=== PATIENT | female | born 1985 | race Caucasian/White ===

== ENCOUNTER → 2016-10-16 | Outpatient (CLI) | payer OTHER ==
[~2016-10-16] MED LIST: ETON1IMP2 SC
--- NOTE | 2016-10-16 16:25 | MAMMOGRAPHY REPORT ---
BILATERAL DIGITAL DIAGNOSTIC MAMMOGRAM TOMOSYNTHESIS WITH CAD AND TARGETED BILATERAL ULTRASOUND: 10/07 CLINICAL HISTORY: 31-year-old woman presents with a reported two-year history of an abnormality in t he left breast. It initially began as focal pain but for the past 6 months she has felt a lump in t hat location. No skin erythema or nipple discharge. Family history of breast cancer = sister diagn osed at age 32. TECHNIQUE: Bilateral CC and MLO 2-D digital and tomosynthesis images were obtained. Current study w as also evaluated with a Computer Aided Detection (CAD) system. COMPARISON: No prior exams were available for comparison. BREAST COMPOSITION: The tissue of both breasts is extremely dense, which lowers the sensitivity of mammography. FINDINGS: Bilateral mammography was performed given a first degree relative who developed breast can cer at age 32. A triangle skin palpable marker overlies the upper outer middle one third of the lef t breast, denoting the lump pointed out by the patient. No suspicious mass, architectural distortio n or suspicious microcalcifications are identified within the left breast, with particular attention to the area of palpable concern in the upper outer quadrant. There is a 12 mm nodular asymmetry in the medial, middle one third of the right breast on the CC view that effaces on the corresponding t omosynthesis images and most likely represents normal glandular tissue. However, further evaluation with ultrasound was performed in the medial right breast. No other suspicious mass, focal area of architectural distortion or suspicious microcalcifications are identified in the right breast. Real-time high-resolution ultrasound was performed in the area of palpable lump pointed out by the p atient (1:00 left breast, 8 cm from the nipple), and throughout the medial right breast. In the are a of palpable concern in the left 1:00 breast, there is heterogeneous background echotexture, with a mixture of fat lobules and dense glandular tissue. No suspicious solid or cystic mass is seen. Th roughout the right medial breast, normal fibroglandular tissue is seen without a suspicious solid or cystic mass. IMPRESSION: ACR BI-RADS CATEGORY 2: BENIGN, TARGETED ULTRASOUND ACR BI-RADS CATEGORY 2: BENIGN 1. There is no mammographic or targeted sonographic evidence of malignancy bilaterally. There is no suspicious mammographic or sonographic abnormality to correlate with the palpable lump in the left upper outer quadrant. Therefore, clinical follow-up is recommended, as biopsy of a clinically suspi cious mass should not be precluded by negative imaging. 2. Given the strong family history of premenopausal breast cancer (patient's sister at age 32), tone eagle recommend annual screening mammography from here forward, as well as additional screening with br east MRI. These results and recommendations were discussed with the patient at the time of the exam. Approximately 10% of breast cancers are not detected with mammography. A negative mammographic repor t should not delay biopsy if a clinically suggestive mass is present. Chata Lizama M.D. ay/:10/16/2016 13:19:01 Medical Videographer: Cynthia KATE(R)(Aimee), [facility] [address] letter sent: Normal 1/2 BI-RADS Code: ACR BI-RADS Category 2: Benign Ultrasound BI-RADS: ACR BI-RADS Category 2: Benign
== END | disposition home or self-care (01) ==
LOC: C.MAMM 10:06
PROVIDERS: ATTEND Obstetrics & Gynecology
DX: N63 Unspecified lump in breast (principal); Z80.3 Family history of malignant neoplasm of breast

== ENCOUNTER 2017-01-08 17:11 | Emergency (ER) | payer OTHER ==
[~2017-01-08] VITALS: Ht 170.2 cm; Wt 66.8 kg
[2017-01-08 17:14] VITALS: TEMP 36.4; Ht 170.2 cm; Wt 66.8 kg
[2017-01-08] MEDS ORDERED: ETON1IMP2 SC (17:49)
[2017-01-08 18:29] LABS: BASO % 0.1 %; BASO ABS # 0.01 K/uL (0-0.2); COMPLETE YES; EOS % 0.5 %; HEMATOCRIT 39.6 % (37-47); IG% 0.1 %; LYMPH % 37.8 %; LYMPH ABS # 2.83 K/uL (1.2-3.4); MEAN CELL VOLUME 90.8 fL (80-100); MEAN CORPUSCULAR HEMOGLOBIN 31.2 pg (25-34); MEAN CORPUSCULAR HGB CONC 34.3 g/dl (32-36); MEAN PLATELET VOLUME 9.9 fL (7.4-10.4); MONO % 4.5 %; PLATELET COUNT 337 K/uL (130-400); RED BLOOD COUNT 4.36 M/uL (4.2-5.4); WHITE BLOOD COUNT 7.48 K/uL (4.8-10.8)
[2017-01-08] MEDS ORDERED: ONDANSETRON 8 MG/54 ML D5W IV STA (18:31)
[2017-01-08] MEDS ORDERED: KETOROLAC TROMETHAMINE 30 MG/ML VIAL IV STA (18:31)
[2017-01-08] MEDS ORDERED: SODIUM CHLORIDE 0.9% 1000ML 1,000 ML IV STA (18:31)
[2017-01-08 18:34] LABS: URINE APPEARANCE CLEAR (CLEAR); URINE BILIRUBIN NEG (NEG); URINE COLOR YELLOW; URINE EPITHELIAL CELL AUTO >30 /lpf (0-5); URINE NITRITE NEG (NEG); URINE PH 6.5 (4.5-7.5); URINE SPECIFIC GRAVITY 1.024 (1.000-1.030); UROBILINOGEN NEG (NEG); ZZUR CULT IF INDIC CLEAN CATCH YES
[2017-01-08 18:35] LABS: MANUAL MICROSCOPIC REQUIRED? NO; REVIEW REQ? NO
[2017-01-08 18:50] LABS: BUN/CREATININE RATIO 15.2 (10-20); CALCIUM 9.5 mg/dl (8.5-10.1); CREATININE 0.89 mg/dl (0.60-1.20); POTASSIUM 4.2 mmol/L (3.5-5.1)
--- NOTE | 2017-01-08 19:41 | DIAGNOSTIC IMAGING REPORT ---
ABDOMINAL ULTRASOUND, RIGHT UPPER QUADRANT HISTORY: Right upper quadrant abdominal pain. COMPARISON: None. FINDINGS: The liver is sonographically normal. There is no biliary ductal dilatation. The common bile duct measures 5 mm in caliber. Gallbladder is normal. There are no gallstones. The pancreatic body is normal. The head and tail are slightly obscured. There is no right hydronephrosis. IMPRESSION: No significant abnormality identified within the right upper quadrant. Electronically signed by: Karri Mejia M.D. 01/08/2017 7:40 PM Dictated Date/Time: 01/08/2017 7:39 PM
[2017-01-08 20:21] VITALS: BP 118/78; PULSE 60; O2SAT 96
--- NOTE | 2017-01-08 21:16 | EMERGENCY ROOM VISIT NOTE ---
History Report prepared by Karlosibe: Kimmy Blancas Under the Supervision of: Dr. Jonathan Sanchez M.D. First contact with patient: 18:06 Chief Complaint: ABDOMINAL PAIN Stated Complaint: STOMACH/SIDE/BACK PAIN, BLOATING, CONSTIPATION,CYNTHIA Nursing Triage Summary: having pain in stomach and right flank. flu like illness for the past 2 weeks. intermittent constipation and diarrhea History of Present Illness The patient is a 31 year old female who presents to the Emergency Room with complaints of persistent right sided abdominal pain for the past 1 week. She is accompanied by her . She rates her pain as a 6/10 in severity and notes she has tried taking Ibuprofen with no relief. The pain started radiating around to her right sided flank today, so she came to the ED. Eating and drinking worsen her discomfort. She reports she has experienced intermittent constipation and diarrhea for the past 1 week. She has also been nauseous for the past several days but has not vomited. The patient notes she fractured her T9-T11 in July 2016, but states her current pain feels different from the pain she experienced with the fracture. She has also been sick with flu like symptoms for the past 2 weeks. Pt denies LOC, headache, fevers, chills, diaphoresis, visual changes, neck pain, chest pain, breathing difficulties, abdominal pain, melena, hematochezia, urinary symptoms, numbness, weakness, lymphadenopathy, rash, or other complaints. 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 A total of ten systems were reviewed and were otherwise negative. Past Medical & Surgical Medical Problems: (1) UTI (urinary tract infection) Surgical Problems: (1) History of tonsillectomy Family History Cancer Heart disease Hypertension Stroke Social History Smoking Status: Never Smoker Alcohol Use: occasionally Drug Use: none Marital Status: Housing Status: lives with family Occupation Status: employed Current/Historical Medications Scheduled Etonogestrel (Nexplanon), 1 IMP SC UD Allergies Coded Allergies: No Known Allergies (Unverified , 07/02/15) Physical Exam Vital Signs Date Time Temp Pulse Resp B/P (MAP) Pulse Ox O2 Delivery O2 Flow Rate FiO2 7/3/17 20:21 60 18 118/78 96 01/08/17 18:51 54 01/08/17 18:44 52 12 110/73 97 Room Air 01/08/17 17:14 36.4 55 18 123/86 99 Room Air Physical Exam GENERAL: Awake, alert, well-appearing, in no distress HENT: Normocephalic, atraumatic. Oropharynx unremarkable. EYES: Normal conjunctiva. Sclera non-icteric. NECK: Supple. No nuchal rigidity. FROM. No JVD. RESPIRATORY: Clear to auscultation. CARDIAC: Regular rate, normal rhythm. Extremities warm and well perfused. Pulses equal. ABDOMEN: Soft, non-distended. RUQ tenderness to palpation. No rebound or guarding. No masses. RECTAL: Deferred. MUSCULOSKELETAL: Chest examination reveals no tenderness. The back is symmetrical on inspection without obvious abnormality. There is no CVA tenderness to palpation. No joint edema. LOWER EXTREMITIES: Calves are equal size bilaterally and non-tender. No edema. No discoloration. NEURO: Normal sensorium. No sensory or motor deficits noted. SKIN: No rash or jaundice noted. Medical Decision & Procedures ER Provider Diagnostic Interpretation: Radiology results as stated below per my review and radiologist interpretation: ABDOMINAL ULTRASOUND, RIGHT UPPER QUADRANT HISTORY: Right upper quadrant abdominal pain. COMPARISON: None. FINDINGS: The liver is sonographically normal. There is no biliary ductal dilatation. The common bile duct measures 5 mm in caliber. Gallbladder is normal. There are no gallstones. The pancreatic body is normal. The head and tail are slightly obscured. There is no right hydronephrosis. IMPRESSION: No significant abnormality identified within the right upper quadrant. Electronically signed by: Karri Mejia M.D. 01/08/2017 7:40 PM Laboratory Results 01/08/17 18:15 Red Blood Count 4.36, Mean Corpuscular Volume 90.8, Mean Corpuscular Hemoglobin 31.2, Mean Corpuscular Hemoglobin Concent 34.3, Mean Platelet Volume 9.9, Neutrophils (%) (Auto) 57.0, Lymphocytes (%) (Auto) 37.8, Monocytes (%) (Auto) 4.5, Eosinophils (%) (Auto) 0.5, Basophils (%) (Auto) 0.1, Neutrophils # (Auto) 4.25, Lymphocytes # (Auto) 2.83, Monocytes # (Auto) 0.34, Eosinophils # (Auto) 0.04, Basophils # (Auto) 0.01 01/08/17 18:15 Test 01/08/17 18:15 White Blood Count 7.48 K/uL (4.8-10.8) Red Blood Count 4.36 M/uL (4.2-5.4) Hemoglobin 13.6 g/dL (12.0-16.0) Hematocrit 39.6 % (37-47) Mean Corpuscular Volume 90.8 fL (80-100) Mean Corpuscular Hemoglobin 31.2 pg (25-34) Mean Corpuscular Hemoglobin Concent 34.3 g/dl (32-36) Platelet Count 337 K/uL (130-400) Mean Platelet Volume 9.9 fL (7.4-10.4) Neutrophils (%) (Auto) 57.0 % Lymphocytes (%) (Auto) 37.8 % Monocytes (%) (Auto) 4.5 % Eosinophils (%) (Auto) 0.5 % Basophils (%) (Auto) 0.1 % Neutrophils # (Auto) 4.25 K/uL (1.4-6.5) Lymphocytes # (Auto) 2.83 K/uL (1.2-3.4) Monocytes # (Auto) 0.34 K/uL (0.11-0.59) Eosinophils # (Auto) 0.04 K/uL (0-0.5) Basophils # (Auto) 0.01 K/uL (0-0.2) RDW Standard Deviation 40.1 fL (36.4-46.3) RDW Coefficient of Variation 12.0 % (11.5-14.5) Immature Granulocyte % (Auto) 0.1 % Immature Granulocyte # (Auto) 0.01 K/uL (0.00-0.02) Urine Color YELLOW Urine Appearance CLEAR (CLEAR) Urine pH 6.5 (4.5-7.5) Urine Specific [place] 1.024 (1.000-1.030) Urine Protein NEG (NEG) Urine Glucose (UA) NEG (NEG) Urine Ketones NEG (NEG) Urine Occult Blood TRACE (NEG) Urine Nitrite NEG (NEG) Urine Bilirubin NEG (NEG) Urine Urobilinogen NEG (NEG) Urine Leukocyte Esterase NEG (NEG) Urine WBC (Auto) 1-5 /hpf (0-5) Urine RBC (Auto) 0-4 /hpf (0-4) Urine Hyaline Casts (Auto) 1-5 /lpf (0-5) Urine Epithelial Cells (Auto) >30 /lpf (0-5) Urine Bacteria (Auto) 1+ (NEG) Urine Test NEG (NEG) Anion Gap 8.0 mmol/L (3-11) Est Creatinine Clear Calc Drug Dose 89.9 ml/min Estimated GFR () 100.8 Estimated GFR (Non- 87.0 BUN/Creatinine Ratio 15.2 (10-20) Calcium Level 9.5 mg/dl (8.5-10.1) Total Bilirubin 0.7 mg/dl (0.2-1) Direct Bilirubin 0.2 mg/dl (0-0.2) Aspartate Amino Transf (AST/SGOT) 13 U/L (15-37) Alanine Aminotransferase (ALT/SGPT) 21 U/L (12-78) Alkaline Phosphatase 43 U/L (45-117) Total Protein 7.4 gm/dl (6.4-8.2) Albumin 4.1 gm/dl (3.4-5.0) Lipase 258 U/L (73-393) Laboratory results reviewed by me Medications Administered Medications (Trade) Dose Ordered Sig/Presley Route Start Time Stop Time Status Last Admin Dose Admin Sodium Chloride 1,000 ml @ 999 mls/hr Q1H1M STAT IV 01/08/17 18:31 01/08/17 19:31 DC 01/08/17 18:44 999 MLS/HR Ketorolac Tromethamine (Toradol Inj) 10 mg NOW STAT IV 01/08/17 18:31 01/08/17 18:33 DC 01/08/17 18:43 10 MG Ondansetron HCl (Zofran 8mg Iv) 8 mg NOW STAT IV 01/08/17 18:31 01/08/17 18:33 DC 01/08/17 18:44 8 MG ED Course 1828: The patient was evaluated in room C7. A complete history and physical exam was performed. 1830: Zofran 8 mg IV, Toradol 10 mg IV, NSS 1000 ml @ 999 mls/hr IV. 2004: I reevaluated the patient. She is feeling much better. I did offer to do more imaging, but she declined. The patient notes she has been eating a low carbohydrate, high fat diet for the past few months and I discussed switching to a more balanced diet. She agrees. I discussed her results and discharge instructions and she verbalized complete understanding and agreement. Medical Decision Medication Reconciliation: I attest that I have personally reviewed the patient' s current medication list Blood pressure screening: Patient was found to have normal blood pressure on screening and does not require follow-up. Triage Nursing notes reviewed. The patient's presentation and history were concerning for right upper quadrant abdominal pain Etiologies such as biliary pathology, pancreatitis, appendicitis, diverticulitis, obstruction, inflammatory bowel disease, renal colic, PUD, mesenteric ischemia, aortic pathology, infections, genitourinary, UTI, perforated viscus, , As well as others were entertained. the patient was evaluated. She had tenderness in the right upper quadrant without peritoneal findings. Clinically she looked well. She was given Toradol , Zofran, and normal saline. On reassessment she felt much better. Her CBC, chemistry panel, LFTs, lipase, urinalysis and test were all normal. The patient underwent ultrasound imaging which did not reveal any acute findings. Patient does note recently that she has been eating a very high fat diet. I advised her to change this. This could be biliary dysfunction although there are no abnormalities on diagnostic testing. I did offer to do additional testing and imaging and the patient declined. She felt well. She feels comfortable with modifying her diet and following up this week in the office. If she worsens in any way she will come back to the emergency department for reevaluation. The exact etiology of her symptoms is not known at this time. I gave my usual and customary discussion regarding this issue. By the evaluation outlined above other emergent etiologies such as those listed in the differential, as well as others, were deemed relatively unlikely. The patient was educated about the findings as listed above. All questions were answered and the patient was pleased with the treatment. Return instructions were outlined and the patient was discharged in stable condition. The patient was referred to her PCP for follow-up for a recheck of the current condition. Impression Primary Impression: Right upper quadrant abdominal pain Scribe Attestation The scribe's documentation has been prepared under my direction and personally reviewed by me in its entirety. I confirm that the note above accurately reflects all work, treatment, procedures, and medical decision making performed by me. Departure Information Dispostion Home / Self-Care Referrals No Doctor, Assigned (PCP) Patient Instructions [facility] Additional Instructions ABDOMINAL PAIN INSTRUCTIONS: Ibuprofen(Motrin, Advil) may be used for fever or pain. Use 600mg every six hours as needed. Take with food. Avoid using more than 2400mg in a 24 hour period. Do not use 2400mg per day for more than three consecutive days without physician direction. Prolonged inappropriate use can lead to stomach upset or ulcers. (AND/OR) Acetaminophen(Tylenol) may be used for fever or pain. Use 1000mg every six hours as needed. Avoid using more than 4000mg in a 24 hour period. Rest and drink plenty of fluids as tolerated. Slow sips of water or sports drinks are recommended instead of large amounts all at once. Continue current medications. Avoid fatty foods. Return to the ER immediately for worsening or persistent abdominal pain, vomiting, fevers, chest pains, difficulty breathing, black or bloody stools, worsening of your condition, or as needed. Follow up with your primary physician in 2-3 days for a recheck of your current condition.
== END 2017-01-08 20:22 | disposition home or self-care (01) ==
LOC: C.EDB 17:12 → C.EDC 20:22
DX: R10.11 Right upper quadrant pain (principal); Z87.440 Personal history of urinary (tract) infections; Z90.89 Acquired absence of other organs; Z82.49 Family history of ischemic heart disease and other diseases of the circulatory system; Z82.3 Family history of stroke

== ENCOUNTER → 2017-01-23 | Outpatient (CLI) | payer OTHER ==
[~2017-01-23] MED LIST changes: +SINCALIDE INJ 1.3 MCG in SODIUM CHLORIDE 0.9% 100ML 100 ML IV ONE
--- NOTE | 2017-01-23 13:09 | DIAGNOSTIC IMAGING REPORT ---
HEPATOBILIARY EF IMAGING HISTORY: Pain RUQ PAIN, PAIN AFTER EATING COMPARISON: None. TECHNIQUE: Immediately following the intravenous administration of 5.5 mCi Tc-99m Choletec, dynamic anterior abdominal imaging pre/post 1.3 mcg of Kinevac was performed. FINDINGS: Uniform hepatic tracer accumulation is shown. Prompt intrahepatic biliary excretion is seen. The gallbladder, common bile duct, and small bowel are all visualized by 30 minutes. This appearance represents the normal sequence of biliary excretion. The gallbladder ejection fraction following administration of Kinevac was 48 % (normal >35%). IMPRESSION: 1. No evidence for cystic duct obstruction. 2. Gallbladder ejection fraction calculated to be 48 %. The above report was generated using voice recognition software. It may contain grammatical, syntax or spelling errors. Electronically signed by: Chan Laughlin M.D. 01/23/2017 1:08 PM Dictated Date/Time: 01/23/2017 1:07 PM
== END | disposition home or self-care (01) ==
LOC: C.NUCL 10:28
PROVIDERS: ATTEND Nurse Practitioner
DX: R10.11 Right upper quadrant pain (principal)

== ENCOUNTER → 2017-01-29 | Outpatient (CLI) | payer OTHER ==
[~2017-01-29] MED LIST changes: -SINCALIDE INJ 1.3 MCG in SODIUM CHLORIDE 0.9% 100ML 100 ML IV ONE
== END | disposition home or self-care (01) ==
LOC: C.PAPS 09:55
PROVIDERS: ATTEND Obstetrics & Gynecology
DX: Z01.419 Encounter for gynecological examination (general) (routine) without abnormal findings (principal)

== ENCOUNTER → 2017-06-28 | Outpatient (CLI) | payer OTHER | END | disposition home or self-care (01) | LOC: C.LAB1850 15:04 | PROVIDERS: ATTEND Obstetrics & Gynecology | DX: Z31.69 Encounter for other general counseling and advice on procreation (principal) ==

== ENCOUNTER → 2017-10-09 | Outpatient (CLI) | payer OTHER | END | disposition home or self-care (01) | LOC: C.LABSPEC 16:05 | PROVIDERS: ATTEND Obstetrics & Gynecology | DX: O09.291 Supervision of pregnancy with other poor reproductive or obstetric history, first trimester (principal) ==

== ENCOUNTER → 2017-10-15 | Outpatient (CLI) | payer OTHER ==
[2017-10-15 14:44] LABS: BASO % 0.1 %; BASO ABS # 0.01 K/uL (0-0.2); EOS % 0.1 %; EOS ABS # 0.01 K/uL (0-0.5); HEMATOCRIT 36.3 % (37-47); HEMOGLOBIN 13.1 g/dL (12.0-16.0); IG# 0.03 K/uL (0.00-0.02); LYMPH % 27.9 %; LYMPH ABS # 2.89 K/uL (1.2-3.4); MEAN CELL VOLUME 87.5 fL (80-100); MEAN CORPUSCULAR HEMOGLOBIN 31.6 pg (25-34); MEAN CORPUSCULAR HGB CONC 36.1 g/dl (32-36); MEAN PLATELET VOLUME 9.8 fL (7.4-10.4); MONO % 5.5 %; MONO ABS # 0.57 K/uL (0.11-0.59); NEUT % 66.1 %; NEUT ABS # 6.84 K/uL (1.4-6.5); PLATELET COUNT 347 K/uL (130-400); RED CELL DISTRIBUTION WIDTH CV 12.4 % (11.5-14.5); RED CELL DISTRIBUTION WIDTH SD 39.7 fL (36.4-46.3); WHITE BLOOD COUNT 10.35 K/uL (4.8-10.8)
== END | disposition home or self-care (01) ==
LOC: C.LAB1850 12:54
PROVIDERS: ATTEND Obstetrics & Gynecology
DX: O09.291 Supervision of pregnancy with other poor reproductive or obstetric history, first trimester (principal)

== ENCOUNTER 2019-03-04 11:57 | Inpatient (IN) ==
[2019-03-04 12:36] LABS: Appearance Urine Clear (Clear); Bacteria Urine Automated Negative (Negative); Bilirubin Urine Negative (Negative); Blood Urine Negative (Negative); Cast Urine Automated 0 /lpf (0-5); Color Urine Yellow; Epithelial Cell Urine Auto >30 /lpf (0-5); Glucose Urine UA Negative (Negative); Ketones Urine Negative (Negative); Leukocyte Esterase Urine Trace (Negative); Nitrite Urine Negative (Negative); Protein Urine Negative (Negative); RBC Urine Automated 0-4 /hpf (0-4); Specific Gravity Urine 1.009 (1.000-1.030); Urobilinogen Urine Negative (Negative)
[2019-03-04 12:39] LABS: Basophils # (auto) 0.01 K/uL (0-0.2); Basophils % (auto) 0.2 %; Eosinophils # (auto) 0.04 K/uL (0-0.5); Eosinophils % (auto) 0.7 %; Immature Granulocytes # (auto) 0.01 K/uL (0.00-0.02); Immature Granulocytes % (auto) 0.2 %; Lymphocytes # (auto) 2.72 K/uL (1.2-3.4); Lymphocytes % (auto) 44.7 %; Mean Corpuscular Volume 88.5 fL (80-100); Monocytes # (auto) 0.32 K/uL (0.11-0.59); Monocytes % (auto) 5.3 %; Neutrophils # (auto) 2.98 K/uL (1.4-6.5); Neutrophils % (auto) 48.9 %; Platelet Count 309 K/uL (130-400); RDW Coefficient of Variation 12.1 % (11.5-14.5); RDW Standard Deviation 38.7 fL (36.4-46.3); Red Blood Count 4.52 M/uL (4.2-5.4); White Blood Count 6.08 K/uL (4.8-10.8)
[2019-03-04 13:01] LABS: Amphetamines+Metham, Urine Neg (Neg); Barbiturates, Urine Neg (Neg); Benzodiazepine, Urine Neg (Neg); Cocaine, Urine Neg (Neg); MDMA (Ecstacy), Urine Neg (Neg); Methadone, Urine Neg (Neg); Opiate, Urine Neg (Neg); Phencyclidine, Urine Neg (Neg)
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
[2019-03-04 13:04] LABS: Pregnancy Test, Serum Negative (Negative)
[2019-03-04 13:10] LABS: Acetaminophen < 2 ug/ml (10-30); Salicylate < 1.7 mg/dl (2.8-20)
[2019-03-04 13:15] LABS: Albumin Level 4.4 gm/dl (3.4-5.0); BUN Creatinine Ratio 11.5 (10-20); Calcium 9.1 mg/dl (8.5-10.1); Creatinine Clr Calc Pharmacy 102.2 ml/min; Est GFR (African American) 124.2; Est GFR (Non-African American) 107.2; Potassium 3.9 mmol/L (3.5-5.1)
[2019-03-04 13:25] LABS: Albumin Globulin Ratio 1.3 (0.9-2); Bilirubin,Total 1.7 mg/dl (0.2-1); Globulin 3.4 gm/dl (2.5-4.0); Thyroid Stimulating Hormone 1.84 uIu/ml (0.300-4.500); Total Protein 7.8 gm/dl (6.4-8.2)
[2019-03-04] MEDS ORDERED: ALUMINUM/MAGNESIUM SUSP 30 ML UDC PO PRN (14:24)
[2019-03-04] MEDS ORDERED: SODIUM CHLORIDE 0.65% NA SOLN 45 ML (OCEAN) PRN (14:24)
[2019-03-04] MEDS ORDERED: ACETAMINOPHEN 325 MG TAB PO PRN (14:24)
[2019-03-04] MEDS ORDERED: MAGNESIUM HYDROXIDE SUSP 30 ML UDC PO PRN (14:24)
[2019-03-04] MEDS ORDERED: BISMUTH SUBSALICYLATE PER ML OMNICELL CHARGE PO PRN (14:24)
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
[2019-03-05] MEDS: FLUOXETINE HCL 20 MG CAP PO SCH (08:32)
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
[2019-03-06] MEDS: FLUOXETINE HCL 20 MG CAP PO SCH (08:59)
--- NOTE | 2019-03-06 13:47 | Psychiatric Progress Note ---
Date of Service March 06, 2019 Impression / Recommendations Impression 33-year-old female admitted voluntarily for inpatient psychiatric treatment due to worsening depression, increased anxiety, and suicidal ideation with plan to overdose. Pt was agreeable to initiation of fluoxetine on admission, and with further collateral and evaluation - her symptoms reported suggest criteria for obsessive compulsive disorder, in combination with recurrent depression. Pt is tolerating fluoxetine, and is gaining insight through attendance of group and recreational therapies. After review of risks and benefits, the patient is agreeable to titration of fluoxetine to 40mg daily to further target her anxiety and depression symptoms. Pt feels communication with her is improving and she has been developing healthy coping strategies. Pt is accepting of referrals to [facility] for medication management and therapy. Pt denies ongoing SI at this time. Ongoing inpatient psychiatric treatment remains medically necessary to ensure consistency of improvements. Pt remains at high risk of harm to self, as decompensation is likely if she is discharged prematurely. (1) Suicidal ideation: 03/04 - Admitted to a locked inpatient behavioral health unit, on q15 minute safety checks - Encourage medication initiation/adjustments as indicated - Encourage participation in group and recreational therapies - Suggest family meeting to involve outpatient supports in safety planning - Arrange appropriate aftercare 03/06 - Reports resolution of SI at this time, more hopeful today (2) Depression: 03/04 - Start fluoxetine 20mg qAM, with titration as tolerated. Risks, benefits, and potential side effects were reviewed. Pt verbalized understanding and is agreeable to re-trial of the medication. - Develop tools to improve medication compliance - Encourage participation in group and recreational therapies - Encourage development of healthy and effective coping strategies - Involve in a family meeting to discuss discharge and aftercare planning - Refer for outpatient psychiatrist and therapist 03/05 -In addition to depression, as well as anxious distress associated with depression, the patient does meet criteria for obsessive-compulsive disorder and this is being added to the problem list. We will address both OCD and depression with Prozac, and the plan is to titrate the dose as tolerated. -We talked to the patient about fluoxetine extended release given her history of demonstrated and repeated difficulty remembering to take her medications on a daily basis, a circumstance that she attributes to her somewhat chaotic work and home life schedule. 03/06 - Titrate fluoxetine to 40mg qAM, she will receive an additional 20mg dose this afternoon to reach this dosage - Nursing called patient's pharmacy ([facility]) to discuss availability of delayed release fluoxetine - it is available through [facility], but would need to be ordered - Will plan to titrate to an effective dose of immediate release fluoxetine, and once-weekly dosing can be considered on an outpatient basis (3) Anxiety: 03/04 - Anxiety disorder, unspecified - differential includes generalized anxiety disorder, OCPD, or anxiety - Treat as above with initiation of fluoxetine 20mg qAM, titration as tolerated to target both anxiety and depression 03/06 - See OCD problem below (4) Obsessive compulsive disorder (or obsessive compulsive neurosis): 03/05/19 -On further examination today it is agreed that the patient does meet criteria for obsessive-compulsive disorder. Specifically, she is not only overly devoted to rules, lists, and order, she also has intrusive alien or ego dystonic thoughts. She describes these alien thoughts as being once that she can manage by allowing the thoughts to "spiral and deliberately get worse," and then by saying "this is not real. I am here." She also has counting compulsions as well as checking compulsions. -Fluoxetine will be used at higher dosages to manage obsessive-compulsive symptoms. -It appears that many of the patient's recurrent suicidal thoughts are associated with intrusive ego-dystonic thoughts consistent with obsessive- compulsive disorder. 03/06 - Titration fluoxetine to 40mg daily, will receive additional 20mg dose this afternoon to achieve this dosage Inventory Assets Strengths: willingness for treatment, support of and in-laws, wi llingness for medications Needs: Development of healthy and effective coping strategies, effective medication trials, improved medication compliance Risk Factors Assessment Male: No : Yes Do You Have Access To A Gun?: Yes (unlocked in the home) Health Problems: No Mental Health Diagnoses: Yes Substance Use Disorders: No Previous Attempt: Yes (overdose at age 16y/o) Family History of Suicide: Yes (father completed suicide when patient was 9 y/o) Previous Psychiatric Hospitalization: No Hopelessness: Yes Smoker: No Protective Factors Assessment Ep[employer]opalian Beliefs: No : Yes Responsible for Young Children: Yes Employed: Yes ([employer]) Stable Relationships: Yes Supportive Family: Yes (in-laws are supportive) Good Rapport with Provider: Yes Absence of Any Risk Factors Above: No Interval History Identifying Information RONALD AGUILAR is a 33-year-old F who currently lives in [place], [place] with her and 9-month-old daughter. Pt has a reported history of depression, and was admitted on a 201 voluntary commitment for worsening depression in the context of several situational stressors and suicidal ideation with plan to overdose. Chief Complaint "There was concern with my different behaviors, but there's been a lot of communication about things I can do to get better and was my and I can communicate more." Review of Systems Notes Constitutional: reports mildly increased fatigue today Cardiovascular: denied Respiratory: denied Gastrointestinal: denied Neurological: denied Psychiatric: denies symptoms other than stated above Total of at least 10 systems reviewed, pertinent positives as above and in HPI. Sleep Information Total Hours of Sleep: 7.75 Meal Information Percent Meal Consumed - Breakfast: 50 Percent Meal Consumed - Lunch: 75 Percent Meal Consumed - Dinner: 50 Subjective Subjective Patient was seen & assessed and interval progress reviewed with nursing and social work. Staff reports the patient has reported increased hopefulness, but admits that she does not feel she has adequate coping skills to support a favorable discharge. Pt participated in a family meeting with her yesterday, in which they discussed was in which the patient can effectively express her needs, and ways in which she and her can communicate better. Pt was seen today to assess progress since admission. Pt states that while she is aware there was concern about some of her behaviors, she feels that she is headed in a better direction. Pt values the meeting she had yesterday with her , and feels like some of their discussion will help the two of them to communicate better - both about their needs and about simple things within the home. Pt reports feeling "calm" today, and is appreciative that there is an "attainable plan" for when she leaves the hospital. Pt states she is pleased with her aftercare arrangements and is happy to be seeing a therapist again. Pt reports desire to communicate her needs to her family, especially as it relates to getting time for self-care and exercise. Pt was agreeable to titration of fluoxetine to 40mg, and agrees to receiving an additional 20mg dose this afternoon. Pt denies suicidality, and states she feels she is in a better place with regard to her mood and anxiety. Pt denies other needs or concerns at this time. Physical Exam Psychiatric Orientation: alert, oriented x 3 and cooperative (and pleasant) Apperance: appropriately dressed (casually, in a sweatshirt and leggings), appropriately groomed and appeared stated age Eye Contact: good eye contact Motor Behavior: steady gait and station and no abnormal motor movements Speech: normal rate/rhythm/volume of speech Affect: euthymic affect (appearing calm, more relaxed - smiling appropriately); no depressed affect and no anxious affect Mood: no depressed mood and no anxious mood "I really feel calm." Thought Process: goal directed thought process, linear/logical thought process and clear/coherent thought process Thought Content: + obsessions (reduced, as patient has been discussing anxiety and ways to manage ) and reality based without delusions Suicidal Thoughts: denies suicidal thoughts and denies suicidal intent Homicidal Thoughts: denies homicidal thoughts Hallucinations: no auditory hallucinations and no visual hallucinations Cognition: recent memory grossly intact, attention grossly intact and language grossly intact Estimated Intelligence: consistent with education level Insight: good insight Judgement: good judgement Vital Signs (Past 24 Hours) Last Vital Signs Temp 36.6 C 03/06/19 06:00 Pulse 88 03/06/19 06:45 Resp 15 03/06/19 06:00 BP 109/67 03/06/19 06:45 Pulse Ox 100 03/04/19 14:01 Results & Data Current Inpatient Medications Current Inpatient Medications: Current Inpatient Medications Acetaminophen (Tylenol) 650 mg PO Q4H PRN PRN Reason: Headache or Minor Fever Stop: 04/03/19 14:23 Al Hydrox/Mg Hydrox/Simethicone (Maalox) 30 ml PO Q4H PRN PRN Reason: GI Upset Stop: 04/03/19 14:23 Bismuth Subsalicylate (Kaopectate) 15 ml PO PRN PRN PRN Reason: Loose Stool Stop: 04/03/19 14:23 Fluoxetine HCl (Prozac) 20 mg PO QAM BRINA Stop: 04/04/19 08:59 Last Admin: 03/06/19 08:59 Dose: 20 mg Documented by: Hydroxyzine HCl (Vistaril) 25 mg PO Q4H PRN PRN Reason: Anxiety Stop: 04/03/19 14:23 Hydroxyzine HCl (Vistaril) 50 mg PO HSZ PRN PRN Reason: Insomnia Stop: 04/03/19 14:23 Last Admin: 03/04/19 22:49 Dose: 50 mg Documented by: Magnesium Hydroxide (Milk Of Magnesia) 30 ml PO DAILY PRN PRN Reason: Heartburn Stop: 04/03/19 14:23 Sodium Chloride ([place]han Nasal) 1 - 2 sprays NA PRN PRN PRN Reason: Nasal Dryness/Congestion Stop: 04/03/19 14:23 Mental Health & Subst Abuse Tx Psychiatrist Name of Psychiatrist: [facility] Psychiatrist's Psychiatric Appointment Comment: [address], [place] [address] Therapist Name of Therapist: [facility] Therapist's Therapy Appointment Comment: [address], [place] [address] Management Internship Name of Management Internship: None Post Discharge Appointments Primary Care Physician Name Of Family Doctor: D[facility] Time of Appointment with PCP: Follow up as needed. Provider Appointment Comment: [address], [address], [place] [address] Contact Information Discharge Discharge Address: [address] [place] [id number] CPT Code CPT Code 82349 (1) Depression Depression Type: unspecified Qualified Code(s): F32.9 - Major depressive disorder, single episode, unspecified
[2019-03-06] MEDS ORDERED: FLUOXETINE HCL 20 MG CAP PO ONE (15:00)
[2019-03-07] MEDS ORDERED: FLUOXETINE HCL 20 MG CAP PO SCH (09:00)
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
== END 2019-03-07 11:30 | disposition home or self-care (01) | DRG 885 ==
LOC: ED 11:57 → 3S 14:24